=== PATIENT | male | born 1955 | race Caucasian/White ===

== ENCOUNTER 2025-05-22 13:31 | Day surgery (SDC) | payer MEDICARE, BC ==
[~2025-05-22 13:31] MED LIST: Pilocarpine 4% Ophth Soln 15 ML Bot EYERT SCH
[2025-05-22] MEDS: Polymyxin B/Trimethoprim 10 ML Bottle EYERT SCH (13:55)
[2025-05-22] MEDS: Tropicamide 1% Ophth Soln 3 ML Bottle EYERT SCH (14:15)
[2025-05-22] MEDS: Tetracaine HCl/PF 0.5% 4 ML Bottle EYEBOTH SCH (14:52)
[2025-05-22] MEDS: Lidocaine 1% PF 2 ML SDV INJECT SCH (15:08)
[2025-05-22] MEDS: Cefuroxime 10 MG/ML SYRINGE EYERT SCH (15:20)
== END 2025-05-22 15:30 | disposition home or self-care (01) ==
LOC: JD.SDS 13:31
PROVIDERS: ATTEND Ophthalmology
DX: H25.811 Combined forms of age-related cataract, right eye (principal); H43.813 Vitreous degeneration, bilateral; H16.223 Keratoconjunctivitis sicca, not specified as Sjogren's, bilateral; H16.9 Unspecified keratitis; E78.00 Pure hypercholesterolemia, unspecified; I10 Essential (primary) hypertension; Z96.1 Presence of intraocular lens; Z79.899 Other long term (current) drug therapy
CPT/HCPCS: A9270-GY; J0697; J3490